=== PATIENT | female | born 1970 | race African-American/Black ===

== ENCOUNTER 2017-09-20 04:45 | Emergency (ER) | payer MEDICARE, OTHER ==
[~2017-09-20] VITALS: Ht 175.3 cm; Wt 104.5 kg
[~2017-09-20 04:45] MED LIST: BUSP10TA23 PO; DIVA125T32 PO; FLUO10TA3 PO; NOCURR
[2017-09-20] MEDS ORDERED: KETOROLAC TROMETHAMINE 60 MG/2 ML VIAL IM ONE (06:30)
[2017-09-20] MEDS ORDERED: ACETAMINOPHEN 500 MG TABLET PO ONE (06:30)
[2017-09-20 07:45] VITALS: BP 120/88
== END 2017-09-20 07:50 | disposition home or self-care (01) ==
LOC: EMS 04:46
DX: M54.5 Low back pain (principal); M62.838 Other muscle spasm; F31.9 Bipolar disorder, unspecified; F17.210 Nicotine dependence, cigarettes, uncomplicated
CPT/HCPCS: 96372; 99283; J1885

== ENCOUNTER 2017-09-28 14:11 | Inpatient (IN) | payer MEDICARE, MEDICAID ==
[~2017-09-28] VITALS: Ht 175.3 cm; Wt 93.9 kg
[2017-09-28] MEDS ORDERED: HALOPERIDOL 5 MG TABLET PO PRN (15:15)
[2017-09-28 15:30] VITALS: BP 99/68
[2017-09-28 17:04] VITALS: BP 101/65
[2017-09-28] MEDS ORDERED: ACETAMINOPHEN 325 MG TABLET PO PRN (17:15)
[2017-09-28] MEDS ORDERED: DOCUSATE SODIUM 100 MG CAPSULE PO PRN (17:15)
[2017-09-28] MEDS ORDERED: GuaiFENesin/D-METHORPHAN [SUGAR-FREE] 200-20MG/10 ML SYRUP UDCUP PO PRN (17:15)
[2017-09-28] MEDS ORDERED: MAG HYDROX/AL HYDROX/SIMETH ES 30 ML SUSPENSION UDCUP PO PRN (17:15)
[2017-09-28] MEDS ORDERED: ALBUTEROL SULFATE HFA 90 MCG/PUFF 8 GM INHALER IH PRN (17:15)
[2017-09-28] MEDS ORDERED: ONDANSETRON HCL 4 MG TABLET PO PRN (17:15)
[2017-09-28] MEDS ORDERED: PETROLATUM,WHITE 71 GM JELLY TP PRN (17:15)
[2017-09-28] MEDS ORDERED: LOPERAMIDE HCL 2 MG CAPSULE PO PRN (17:15)
[2017-09-28] MEDS ORDERED: MAGNESIUM HYDROXIDE SUSPENSION 30 ML UDCUP PO PRN (17:15)
[2017-09-28] MEDS ORDERED: CloNIDine HCL 0.1 MG TABLET PO PRN (17:15)
[2017-09-28] MEDS ORDERED: NICOTINE 14 MG/24 HOUR PATCH TD PRN (17:15)
[2017-09-28] MEDS ORDERED: CLOM25 PO (17:16)
[2017-09-28] MEDS ORDERED: ALPR0.5T8 PO ×2 (17:16→17:17)
[2017-09-28] MEDS ORDERED: BENZ0.5T44 PO (17:16)
[2017-09-28] MEDS ORDERED: CLOM50 PO (17:16)
[2017-09-28] MEDS ORDERED: LITH300CRT PO ×2 (17:16)
[2017-09-28] MEDS ORDERED: TRAZ-220 PO (17:16)
[2017-09-28] MEDS: NICOTINE 21 MG/24 HOUR PATCH TD SCH (17:31)
[2017-09-28] MEDS ORDERED: PNEUMOCOCCAL VACCINE POLYVALENT 0.5 ML VIAL [PPSV23] IM ONE (19:00)
[2017-09-29 01:28] VITALS: BP 121/69
[2017-09-29] MEDS: ZOLPIDEM TARTRATE 10 MG TABLET PO PRN ×2 (02:44→20:43)
[2017-09-29] MEDS: LORazepam 2 MG TABLET PO PRN ×3 (02:44→17:33)
[2017-09-29] MEDS: NICOTINE 21 MG/24 HOUR PATCH TD SCH (08:12)
[2017-09-29 08:28] LABS: BASOPHILS % (AUTO) 0.6 % (0.0-2.0); EOSINOPHILS % (AUTO) 2.6 % (1.0-6.0); HEMOGLOBIN 13.9 g/dL (12.0-16.0); LYMPHOCYTES # (AUTO) 2.9 K/uL (1.0-4.8); LYMPHOCYTES % (AUTO) 42.4 % (22.0-44.0); MEAN CORPUSCULAR HEMOGLOBIN 32.7 pg (26.0-34.0); MEAN CORPUSCULAR HGB CONC 33.8 G/dL (31.0-37.0); MEAN CORPUSCULAR VOLUME 97 fL (80-100); MONOCYTES # (AUTO) 0.5 K/uL (0.1-1.0); MONOCYTES % (AUTO) 7.9 % (2.0-9.0); NEUTROPHILS # (AUTO) 3.2 K/uL (1.8-7.7); NEUTROPHILS % (AUTO) 46.5 % (40.0-70.0); PLATELET COUNT (AUTO) 344 K/uL (150-450); RED BLOOD CELL COUNT(AUTO) 4.24 MIL/uL (4.00-5.20); RED CELL DISTRIBUTION WIDTH 13.9 % (11.5-14.5)
[2017-09-29 08:31] VITALS: BP 129/87
[2017-09-29 08:41] LABS: LITHIUM < 0.20 mmol/L (0.60-1.20)
[2017-09-29 08:46] LABS: HEMOGLOBIN A1C 5.3 % (4.5-6.2)
[2017-09-29 08:58] LABS: ALANINE AMINOTRANSFERASE 19 U/L (12-78); ALBUMIN 2.8 g/dL (3.4-5.0); ALKALINE PHOSPHATASE 67 U/L (46-116); ANION GAP 5 mmol/L (8-16); ASPARTATE AMINOTRANSFERASE 14 U/L (15-37); BILIRUBIN,TOTAL 0.1 mg/dL (0.1-1.0); CALCIUM, TOTAL 8.5 mg/dL (8.8-10.5); CARBON DIOXIDE 26 mmol/L (22-29); CHLORIDE 106 mmol/L (98-107); CHOL/HDL RATIO 2.9 (3.9-5.7); CHOLESTEROL 167 mg/dL (131-200); CREATININE 0.65 mg/dL (0.60-1.30); FREE T4 (FREE THYROXINE) 0.85 ng/dL (0.76-1.46); GLOMERULAR FILTR. RATE CALC > 60 mL/min (>60); GLUCOSE,RANDOM 84 mg/dL (70-110); HCG,QUANTITATIVE < 1 mIU/mL (0-6); HDL CHOLESTEROL 57 mg/dL (40-60); LDL CHOL (CALC.) 93 mg/dL (0-130); POTASSIUM 4.5 mmol/L (3.5-5.1); SODIUM SERUM 137 mmol/L (136-145); THYROID STIMULATING HORMONE 0.56 uIU/mL (0.36-3.74); TOTAL PROTEIN, SERUM 6.5 g/dL (6.4-8.2); TRIGLYCERIDES 86 mg/dL (15-150); UREA NITROGEN, BLOOD 15 mg/dL (7-18)
[2017-09-29] MEDS: LITHIUM CARBONATE 300 MG ER TABLET PO SCH ×2 (12:01→16:33)
[2017-09-29 16:10] VITALS: BP 112/78
[2017-09-29 17:17] VITALS: BP 119/82
[2017-09-29] MEDS: IBUPROFEN 400 MG TABLET PO PRN (17:19)
[2017-09-29] MEDS: OLANZapine 7.5 MG TABLET PO SCH (20:43)
[2017-09-29] MEDS: BENZTROPINE MESYLATE 0.5 MG TABLET PO SCH (20:43)
[2017-09-30 01:19] VITALS: BP 110/74
[2017-09-30 07:20] VITALS: BP 129/82
[2017-09-30] MEDS: LORazepam 2 MG TABLET PO PRN ×3 (07:21→16:27)
[2017-09-30] MEDS: IBUPROFEN 400 MG TABLET PO PRN (07:22)
[2017-09-30] MEDS: NICOTINE 21 MG/24 HOUR PATCH TD SCH (08:11)
[2017-09-30] MEDS: LITHIUM CARBONATE 300 MG ER TABLET PO SCH ×2 (08:11→17:11)
[2017-09-30 08:24] VITALS: BP 104/61
[2017-09-30] MEDS ORDERED: AmLODIPine BESYLATE 5 MG TABLET PO SCH (10:30)
[2017-09-30 16:10] VITALS: BP 112/60
[2017-09-30] MEDS ORDERED: BENZOCAINE 10% 7 GM GEL TP PRN (18:45)
[2017-09-30 20:19] VITALS: BP 116/64
[2017-09-30] MEDS: IBUPROFEN 600 MG TABLET PO PRN (20:19)
[2017-09-30] MEDS: BENZTROPINE MESYLATE 0.5 MG TABLET PO SCH (20:35)
[2017-09-30] MEDS: OLANZapine 7.5 MG TABLET PO SCH (20:35)
[2017-10-01 02:30] VITALS: BP 114/68
[2017-10-01] MEDS: NICOTINE 21 MG/24 HOUR PATCH TD SCH (08:07)
[2017-10-01] MEDS: LITHIUM CARBONATE 300 MG ER TABLET PO SCH ×2 (08:07→17:04)
[2017-10-01 08:23] VITALS: BP 108/69
[2017-10-01] MEDS: LORazepam 2 MG TABLET PO PRN ×2 (08:36→12:55)
[2017-10-01 10:20] VITALS: BP 112/72
[2017-10-01] MEDS: IBUPROFEN 600 MG TABLET PO PRN (10:20)
[2017-10-01] MEDS ORDERED: TraMADol HCL 50 MG TABLET PO PRN (13:15)
[2017-10-01 16:02] VITALS: BP 104/68
[2017-10-01] MEDS ORDERED: OLANZapine 7.5 MG TABLET PO SCH (17:00)
[2017-10-01] MEDS: BENZTROPINE MESYLATE 0.5 MG TABLET PO SCH (20:01)
[2017-10-01] MEDS: ZOLPIDEM TARTRATE 10 MG TABLET PO PRN (20:35)
[2017-10-01] MEDS ORDERED: OLAN7.5T2 PO (22:08)
[2017-10-02 06:46] VITALS: BP 100/63
[2017-10-02 06:58] VITALS: BP 107/68
[2017-10-02] MEDS: LORazepam 2 MG TABLET PO PRN (06:58)
[2017-10-02 08:11] VITALS: BP 131/66
[2017-10-02] MEDS: NICOTINE 21 MG/24 HOUR PATCH TD SCH (08:39)
[2017-10-02] MEDS: LITHIUM CARBONATE 300 MG ER TABLET PO SCH (08:39)
== END 2017-10-02 11:15 | disposition home or self-care (01) | DRG 885 ==
LOC: B2X 15:25
DX: F25.0 Schizoaffective disorder, bipolar type (principal); R45.851 Suicidal ideations; F10.10 Alcohol abuse, uncomplicated; F12.90 Cannabis use, unspecified, uncomplicated; G89.29 Other chronic pain; M54.9 Dorsalgia, unspecified; K08.89 Other specified disorders of teeth and supporting structures; E83.51 Hypocalcemia; F17.200 Nicotine dependence, unspecified, uncomplicated; Z71.6 Tobacco abuse counseling; Z91.5 Personal history of self-harm; Z28.21 Immunization not carried out because of patient refusal
CPT/HCPCS: 83036; 84439; 84443

== ENCOUNTER 2018-04-02 01:35 | Emergency (ER) | payer MEDICARE, OTHER ==
[~2018-04-02] VITALS: Ht 170.2 cm; Wt 104.5 kg
[~2018-04-02 01:35] MED LIST changes: +BENZ0.5T44 PO; -BUSP10TA23 PO; -DIVA125T32 PO; -FLUO10TA3 PO; +LITH300CRT PO; -NOCURR; +OLAN7.5T2 PO
[2018-04-02 02:40] LABS: APPEARANCE,URINE CLEAR (CLEAR); BILIRUBIN,URINE NEGATIVE (NEGATIVE); GLUCOSE, URINE (UA) NEGATIVE (NEGATIVE); KETONES,URINE TRACE mg/dL (NEGATIVE); LEUKOCYTE ESTERASE ,URINE NEGATIVE (NEGATIVE); NITRATE,URINE NEGATIVE (NEGATIVE); OCCULT BLOOD,URINE NEGATIVE (NEGATIVE); PROTEIN,URINE NEGATIVE (NEGATIVE); UROBILINOGEN,URINE 0.2 mg/dL (<=1.0)
[2018-04-02 04:30] LABS: BASOPHILS % (AUTO) 0.9 % (0.0-2.0); EOSINOPHILS % (AUTO) 1.3 % (1.0-6.0); HEMATOCRIT 40.7 % (36-46); LYMPHOCYTES # (AUTO) 2.4 K/uL (1.0-4.8); LYMPHOCYTES % (AUTO) 36.1 % (22.0-44.0); MEAN CORPUSCULAR HEMOGLOBIN 32.3 pg (26.0-34.0); MEAN CORPUSCULAR HGB CONC 34.5 G/dL (31.0-37.0); MEAN CORPUSCULAR VOLUME 94 fL (80-100); MONOCYTES # (AUTO) 0.6 K/uL (0.1-1.0); MONOCYTES % (AUTO) 8.6 % (2.0-9.0); NEUTROPHILS # (AUTO) 3.6 K/uL (1.8-7.7); NEUTROPHILS % (AUTO) 53.1 % (40.0-70.0); PLATELET COUNT (AUTO) 342 K/uL (150-450); RED BLOOD CELL COUNT(AUTO) 4.34 MIL/uL (4.00-5.20); RED CELL DISTRIBUTION WIDTH 13.2 % (11.5-14.5)
[2018-04-02 04:40] LABS: ANION GAP 7 mmol/L (8-16); CALCIUM, TOTAL 8.6 mg/dL (8.8-10.5); CARBON DIOXIDE 27 mmol/L (22-29); CHLORIDE 103 mmol/L (98-107); CREATININE 0.69 mg/dL (0.60-1.30); GLOMERULAR FILTR. RATE CALC > 60 mL/min (>60); GLUCOSE,RANDOM 92 mg/dL (70-110); POTASSIUM 3.6 mmol/L (3.5-5.1); SODIUM SERUM 137 mmol/L (136-145); UREA NITROGEN, BLOOD 8 mg/dL (7-18)
[2018-04-02 04:45] LABS: ALANINE AMINOTRANSFERASE 23 U/L (12-78); ALBUMIN 3.4 g/dL (3.4-5.0); ALKALINE PHOSPHATASE 64 U/L (46-116); ASPARTATE AMINOTRANSFERASE 22 U/L (15-37); BILIRUBIN,TOTAL 0.5 mg/dL (0.1-1.0); LIPASE 175 U/L (73-393); TOTAL PROTEIN, SERUM 7.3 g/dL (6.4-8.2)
[2018-04-02 06:00] VITALS: BP 129/75
== END 2018-04-02 06:48 | disposition home or self-care (01) ==
LOC: EMS 01:36
DX: R10.11 Right upper quadrant pain (principal); R39.11 Hesitancy of micturition; F31.9 Bipolar disorder, unspecified; F17.210 Nicotine dependence, cigarettes, uncomplicated

== ENCOUNTER 2019-04-16 22:29 | Emergency (ER) | payer MEDICARE, OTHER ==
[~2019-04-16] VITALS: Ht 167.6 cm; Wt 118.2 kg
[2019-04-16] MEDS ORDERED: PROZ10 PO (23:25)
[2019-04-16] MEDS ORDERED: ALPR0.5T8 PO (23:25)
[2019-04-16] MEDS ORDERED: LITH300C3 PO (23:26)
[2019-04-17 02:00] VITALS: BP 121/78
[2019-04-17] MEDS ORDERED: TiZANidine HCL 4 MG TABLET PO ONE (02:15)
[2019-04-17] MEDS ORDERED: KETOROLAC TROMETHAMINE 30 MG/ML VIAL IM ONE (02:15)
== END 2019-04-17 02:46 | disposition home or self-care (01) ==
LOC: EMS 22:32
DX: S39.012A Strain of muscle, fascia and tendon of lower back, initial encounter (principal); F17.210 Nicotine dependence, cigarettes, uncomplicated; Z79.899 Other long term (current) drug therapy; F32.9 Major depressive disorder, single episode, unspecified; X58.XXXA Exposure to other specified factors, initial encounter; Y93.89 Activity, other specified; Y92.89 Other specified places as the place of occurrence of the external cause; Y99.8 Other external cause status
CPT/HCPCS: 96372; 99283; J1885

== ENCOUNTER 2020-06-24 06:42 | Emergency (ER) | payer OTHER, MEDICARE ==
[~2020-06-24] VITALS: Ht 172.7 cm; Wt 90.9 kg
[~2020-06-24 06:42] MED LIST changes: +ALPR0.5T8 PO; -BENZ0.5T44 PO; +FLUO10CA24 PO; +LITH300C3 PO; -LITH300CRT PO; -OLAN7.5T2 PO
[2020-06-24 07:54] LABS: BASOPHILS % (AUTO) 0.5 % (0.0-2.0); EOSINOPHILS % (AUTO) 0.9 % (1.0-6.0); HEMATOCRIT 40.6 % (36-46); LYMPHOCYTES # (AUTO) 1.9 K/uL (1.0-4.8); LYMPHOCYTES % (AUTO) 20.7 % (22.0-44.0); MEAN CORPUSCULAR HEMOGLOBIN 32.3 pg (26.0-34.0); MEAN CORPUSCULAR HGB CONC 34.5 G/dL (31.0-37.0); MEAN CORPUSCULAR VOLUME 94 fL (80-100); MONOCYTES # (AUTO) 0.4 K/uL (0.1-1.0); MONOCYTES % (AUTO) 4.4 % (2.0-9.0); NEUTROPHILS # (AUTO) 6.8 K/uL (1.8-7.7); NEUTROPHILS % (AUTO) 73.5 % (40.0-70.0); PLATELET COUNT (AUTO) 377 K/uL (150-450); RED BLOOD CELL COUNT(AUTO) 4.35 MIL/uL (4.00-5.20); RED CELL DISTRIBUTION WIDTH 13.8 % (11.5-14.5)
[2020-06-24 08:07] LABS: ANION GAP 11 mmol/L (8-16); CALCIUM, TOTAL 8.6 mg/dL (8.8-10.5); CARBON DIOXIDE 25 mmol/L (22-29); CHLORIDE 102 mmol/L (98-107); CREATININE 0.54 mg/dL (0.60-1.30); GLOMERULAR FILTR. RATE CALC > 60 mL/min (>60); GLUCOSE,RANDOM 99 mg/dL (70-110); POTASSIUM 3.3 mmol/L (3.5-5.1); SODIUM SERUM 138 mmol/L (136-145); UREA NITROGEN, BLOOD 4 mg/dL (7-18)
[2020-06-24 08:12] VITALS: BP 110/67
[2020-06-24 08:21] LABS: ALANINE AMINOTRANSFERASE 22 U/L (12-78); ALBUMIN 3.5 g/dL (3.4-5.0); ALKALINE PHOSPHATASE 65 U/L (46-116); ASPARTATE AMINOTRANSFERASE 17 U/L (15-37); BILIRUBIN,TOTAL 0.6 mg/dL (0.1-1.0); HCG,QUANTITATIVE < 1 mIU/mL (0-6); TOTAL PROTEIN, SERUM 7.1 g/dL (6.4-8.2)
[2020-06-24] MEDS ORDERED: POTASSIUM CHLORIDE 20 MEQ ER TABLET PO ONE (08:30)
== END 2020-06-24 08:48 | disposition home or self-care (01) ==
LOC: EMS 06:43
DX: R55 Syncope and collapse (principal); M54.5 Low back pain; F31.9 Bipolar disorder, unspecified; F17.210 Nicotine dependence, cigarettes, uncomplicated; Z79.899 Other long term (current) drug therapy
CPT/HCPCS: 80053; 84484; 84702; 85025; 93005; 99284

== ENCOUNTER 2021-02-18 08:00 | Emergency (ER) | payer MEDICARE, OTHER ==
[~2021-02-18] VITALS: Ht 172.7 cm; Wt 77.3 kg
[2021-02-18 08:47] LABS: BASOPHILS % (AUTO) 0.7 % (0.0-2.0); EOSINOPHILS % (AUTO) 1.8 % (1.0-6.0); HEMATOCRIT 40.1 % (36-46); HEMOGLOBIN 13.9 g/dL (12.0-16.0); LYMPHOCYTES # (AUTO) 2.2 K/uL (1.0-4.8); MEAN CORPUSCULAR HEMOGLOBIN 33.7 pg (26.0-34.0); MEAN CORPUSCULAR HGB CONC 34.7 G/dL (31.0-37.0); MEAN CORPUSCULAR VOLUME 97 fL (80-100); MONOCYTES # (AUTO) 0.6 K/uL (0.1-1.0); NEUTROPHILS # (AUTO) 4.5 K/uL (1.8-7.7); NEUTROPHILS % (AUTO) 59.5 % (40.0-70.0); PLATELET COUNT (AUTO) 354 K/uL (150-450); RED BLOOD CELL COUNT(AUTO) 4.13 MIL/uL (4.00-5.20); RED CELL DISTRIBUTION WIDTH 13.8 % (11.5-14.5)
[2021-02-18 08:55] LABS: ANION GAP 6 mmol/L (8-16); CALCIUM, TOTAL 8.5 mg/dL (8.8-10.5); CARBON DIOXIDE 28 mmol/L (22-29); CHLORIDE 102 mmol/L (98-107); CREATININE 0.76 mg/dL (0.60-1.30); GLOMERULAR FILTR. RATE CALC > 60 mL/min (>60); GLUCOSE,RANDOM 98 mg/dL (70-110); SODIUM SERUM 136 mmol/L (136-145); UREA NITROGEN, BLOOD 8 mg/dL (7-18)
[2021-02-18] MEDS ORDERED: ONDANSETRON HCL 4 MG/2 ML VIAL IVP ONE (09:00)
[2021-02-18] MEDS ORDERED: SODIUM CHLORIDE 0.9% 1,000 ML IV ONE (09:00)
[2021-02-18 09:20] LABS: ALANINE AMINOTRANSFERASE 18 U/L (12-78); ALBUMIN 3.5 g/dL (3.4-5.0); ALKALINE PHOSPHATASE 73 U/L (46-116); ASPARTATE AMINOTRANSFERASE 18 U/L (15-37); BILIRUBIN,TOTAL 0.3 mg/dL (0.1-1.0); CREATINE KINASE, TOTAL ONLY 125 U/L (26-192); HCG,QUANTITATIVE 1 mIU/mL (0-6); LIPASE 109 U/L (73-393); TOTAL PROTEIN, SERUM 7.3 g/dL (6.4-8.2)
[2021-02-18] MEDS ORDERED: IOHEXOL 350 MG/ML 100 ML VIAL ONE (09:50)
[2021-02-18] MEDS ORDERED: SODIUM CHLORIDE 0.9% 100 ML ONE (09:50)
[2021-02-18 09:53] LABS: COVID AG,FIA SOURCE NASOPHARYNGEAL
[2021-02-18 10:10] LABS: APPEARANCE,URINE CLEAR (CLEAR); BILIRUBIN,URINE NEGATIVE (NEGATIVE); GLUCOSE, URINE (UA) NEGATIVE (NEGATIVE); KETONES,URINE NEGATIVE (NEGATIVE); LEUKOCYTE ESTERASE ,URINE NEGATIVE (NEGATIVE); NITRATE,URINE NEGATIVE (NEGATIVE); OCCULT BLOOD,URINE NEGATIVE (NEGATIVE); PH,URINE 5.5 (5.0-8.0); PROTEIN,URINE NEGATIVE (NEGATIVE); UROBILINOGEN,URINE 0.2 mg/dL (<=1.0)
[2021-02-18 10:26] LABS: BACTERIA,URINE None Seen /HPF (None Seen); RBC,URINE None Seen /HPF (0-2); SQUAMOUS EPITHELIAL CELL,UR Few /LPF (None Seen); WBC,URINE None Seen /HPF (0-5)
[2021-02-18 12:21] VITALS: BP 123/74
[2021-02-18] MEDS ORDERED: ONDA-104 PO (13:18)
== END 2021-02-18 13:35 | disposition home or self-care (01) ==
LOC: EMS 08:08
DX: N88.8 Other specified noninflammatory disorders of cervix uteri (principal); R11.2 Nausea with vomiting, unspecified; R19.7 Diarrhea, unspecified; R42 Dizziness and giddiness; F31.9 Bipolar disorder, unspecified; F17.210 Nicotine dependence, cigarettes, uncomplicated; F12.90 Cannabis use, unspecified, uncomplicated; Z20.822 Contact with and (suspected) exposure to COVID-19
CPT/HCPCS: 36415; 71045; 74177; 80053; 81001; 82550; 83690; 83735; 84702; 85025; 87426; 93005; 96361; 96374; 99285; J2405; J7030; J7050; Q9967; U0003

== ENCOUNTER 2021-03-04 13:32 | Emergency (ER) | payer MEDICARE, OTHER ==
[~2021-03-04] VITALS: Ht 172.7 cm; Wt 122.7 kg
[~2021-03-04 13:32] MED LIST changes: +ONDA-104 PO
[2021-03-04 14:51] LABS: BASOPHILS % (AUTO) 0.7 % (0.0-2.0); EOSINOPHILS % (AUTO) 1.2 % (1.0-6.0); HEMATOCRIT 38.8 % (36-46); HEMOGLOBIN 13.5 g/dL (12.0-16.0); LYMPHOCYTES # (AUTO) 1.8 K/uL (1.0-4.8); LYMPHOCYTES % (AUTO) 23.6 % (22.0-44.0); MEAN CORPUSCULAR HGB CONC 34.9 G/dL (31.0-37.0); MEAN CORPUSCULAR VOLUME 97 fL (80-100); MONOCYTES # (AUTO) 0.6 K/uL (0.1-1.0); MONOCYTES % (AUTO) 7.5 % (2.0-9.0); PLATELET COUNT (AUTO) 330 K/uL (150-450); RED BLOOD CELL COUNT(AUTO) 3.98 MIL/uL (4.00-5.20); RED CELL DISTRIBUTION WIDTH 13.8 % (11.5-14.5)
[2021-03-04 15:05] LABS: ANION GAP 7 mmol/L (8-16); CALCIUM, TOTAL 8.3 mg/dL (8.8-10.5); CARBON DIOXIDE 25 mmol/L (22-29); CHLORIDE 104 mmol/L (98-107); CREATININE 0.73 mg/dL (0.60-1.30); GLOMERULAR FILTR. RATE CALC > 60 mL/min (>60); GLUCOSE,RANDOM 95 mg/dL (70-110); POTASSIUM 4.1 mmol/L (3.5-5.1); SODIUM SERUM 136 mmol/L (136-145); UREA NITROGEN, BLOOD 9 mg/dL (7-18)
[2021-03-04 15:18] LABS: COVID AG,FIA SOURCE NASOPHARYNGEAL
[2021-03-04 15:20] LABS: ALANINE AMINOTRANSFERASE 24 U/L (12-78); ALBUMIN 3.4 g/dL (3.4-5.0); ALKALINE PHOSPHATASE 71 U/L (46-116); ASPARTATE AMINOTRANSFERASE 32 U/L (15-37); BILIRUBIN,TOTAL 0.4 mg/dL (0.1-1.0); FREE T4 (FREE THYROXINE) 0.95 ng/dL (0.76-1.46); THYROID STIMULATING HORMONE 1.25 uIU/mL (0.36-3.74); TOTAL PROTEIN, SERUM 7.5 g/dL (6.4-8.2)
[2021-03-04 16:03] LABS: LITHIUM < 0.20 mmol/L (0.60-1.20)
[2021-03-04] MEDS ORDERED: KETOROLAC TROMETHAMINE 60 MG/2 ML VIAL IM ONE (16:30)
[2021-03-04 16:33] LABS: AMPHET/METH SCREEN,URINE NEGATIVE (NEGATIVE); BARBITURATE SCREEN, URINE NEGATIVE (NEGATIVE); BENZODIAZEPINES SCREEN,URINE NEGATIVE (NEGATIVE); CANNABINOID SCREEN,URINE POSITIVE (NEGATIVE); COCAINE SCREEN,URINE NEGATIVE (NEGATIVE); METHADONE SCREEN, URINE NEGATIVE (NEGATIVE); OPIATE SCREEN,URINE NEGATIVE (NEGATIVE)
[2021-03-04 16:42] LABS: APPEARANCE,URINE CLOUDY (CLEAR); BILIRUBIN,URINE NEGATIVE (NEGATIVE); GLUCOSE, URINE (UA) NEGATIVE (NEGATIVE); KETONES,URINE NEGATIVE (NEGATIVE); LEUKOCYTE ESTERASE ,URINE NEGATIVE (NEGATIVE); NITRATE,URINE NEGATIVE (NEGATIVE); OCCULT BLOOD,URINE NEGATIVE (NEGATIVE); PROTEIN,URINE NEGATIVE (NEGATIVE); UROBILINOGEN,URINE 0.2 mg/dL (<=1.0)
[2021-03-04 16:47] LABS: PHENCYCLIDINE SCREEN,URINE NEGATIVE (NEGATIVE)
[2021-03-04 17:38] VITALS: BP 119/67
== END 2021-03-04 17:56 | disposition home or self-care (01) ==
LOC: EMS 13:40
DX: S90.121A Contusion of right lesser toe(s) without damage to nail, initial encounter (principal); G89.29 Other chronic pain; M54.50 Low back pain, unspecified; F17.210 Nicotine dependence, cigarettes, uncomplicated; F31.9 Bipolar disorder, unspecified; F12.90 Cannabis use, unspecified, uncomplicated; Z20.822 Contact with and (suspected) exposure to COVID-19; W01.0XXA Fall on same level from slipping, tripping and stumbling without subsequent striking against object, initial encounter; Y93.89 Activity, other specified; Y92.89 Other specified places as the place of occurrence of the external cause; Y99.8 Other external cause status
CPT/HCPCS: 36415; 71045; 73630; 80053; 80178; 80307; 81003; 84439; 84443; 84484; 85025; 87426; 93005; 96372; 99285; G0480; J1885

== ENCOUNTER 2021-04-08 06:50 | Emergency (ER) | payer OTHER, MEDICARE ==
[~2021-04-08] VITALS: Ht 172.7 cm; Wt 100.0 kg
[2021-04-08] MEDS ORDERED: PARO10TA89 PO (08:40)
[2021-04-08] MEDS ORDERED: MECLIZINE HCL 25 MG TABLET PO ONE (09:00)
[2021-04-08 10:25] VITALS: BP 135/77
[2021-04-08] MEDS ORDERED: MECL-160 PO (11:10)
== END 2021-04-08 11:20 | disposition home or self-care (01) ==
LOC: EMS 06:51
DX: H81.10 Benign paroxysmal vertigo, unspecified ear (principal); F31.9 Bipolar disorder, unspecified; F41.9 Anxiety disorder, unspecified; F12.90 Cannabis use, unspecified, uncomplicated; F17.210 Nicotine dependence, cigarettes, uncomplicated; Z79.899 Other long term (current) drug therapy
CPT/HCPCS: 70450; 99285

== ENCOUNTER 2022-03-24 13:49 | Inpatient (IN) | payer MEDICARE, MEDICAID ==
[~2022-03-24] VITALS: Ht 170.2 cm; Wt 106.6 kg
[~2022-03-24 13:49] MED LIST changes: +ALPR-707 PO; -ALPR0.5T8 PO; +MECL-160 PO; +PARO10TA89 PO
[2022-03-24] MEDS ORDERED: OLAN2.5T29 PO (14:02)
[2022-03-24 15:13] LABS: BASOPHILS % (AUTO) 0.9 % (0.0-2.0); EOSINOPHILS % (AUTO) 1.8 % (1.0-6.0); HEMATOCRIT 47.7 % (36-46); HEMOGLOBIN 15.8 g/dL (12.0-16.0); LYMPHOCYTES # (AUTO) 2.6 K/uL (1.0-4.8); LYMPHOCYTES % (AUTO) 42.1 % (22.0-44.0); MEAN CORPUSCULAR HEMOGLOBIN 32.2 pg (26.0-34.0); MEAN CORPUSCULAR HGB CONC 33.2 G/dL (31.0-37.0); MEAN CORPUSCULAR VOLUME 97 fL (80-100); MONOCYTES # (AUTO) 0.4 K/uL (0.1-1.0); MONOCYTES % (AUTO) 6.3 % (2.0-9.0); NEUTROPHILS % (AUTO) 48.9 % (40.0-70.0); PLATELET COUNT (AUTO) 330 K/uL (150-450); RED BLOOD CELL COUNT(AUTO) 4.92 MIL/uL (4.00-5.20); RED CELL DISTRIBUTION WIDTH 14.1 % (11.5-14.5)
[2022-03-24 15:53] LABS: ANION GAP 15 mmol/L (8-16); CARBON DIOXIDE 23 mmol/L (22-29); CHLORIDE 103 mmol/L (98-107); CREATININE 0.77 mg/dL (0.60-1.30); GLOMERULAR FILTR. RATE CALC > 60 mL/min (>60); GLUCOSE,RANDOM 79 mg/dL (70-110); POTASSIUM 4.1 mmol/L (3.5-5.1); SODIUM SERUM 141 mmol/L (136-145); UREA NITROGEN, BLOOD 7 mg/dL (7-18)
[2022-03-24 16:01] LABS: ALANINE AMINOTRANSFERASE 20 U/L (12-78); ALBUMIN 3.9 g/dL (3.4-5.0); ALKALINE PHOSPHATASE 88 U/L (46-116); ASPARTATE AMINOTRANSFERASE 17 U/L (15-37); BILIRUBIN,TOTAL 0.4 mg/dL (0.1-1.0); HCG,QUANTITATIVE 3 mIU/mL (0-6); TOTAL PROTEIN, SERUM 8.5 g/dL (6.4-8.2)
[2022-03-24 16:08] LABS: COVID AG,FIA SOURCE NASOPHARYNGEAL
[2022-03-24] MEDS ORDERED: LORazepam 2 MG TABLET PO ONE (16:15)
[2022-03-24] MEDS ORDERED: NICOTINE 14 MG/24 HOUR PATCH TD ONE (16:15)
[2022-03-24 20:00] VITALS: BP 120/84
[2022-03-24] MEDS: ZOLPIDEM TARTRATE 10 MG TABLET PO PRN (20:18)
[2022-03-24] MEDS ORDERED: LOPERAMIDE HCL 2 MG CAPSULE PO PRN (21:00)
[2022-03-24] MEDS ORDERED: ONDANSETRON HCL 4 MG TABLET PO PRN (21:00)
[2022-03-24] MEDS ORDERED: GuaiFENesin/D-METHORPHAN [SUGAR-FREE] 200-20MG/10 ML SYRUP UDCUP PO PRN (21:00)
[2022-03-24] MEDS ORDERED: ALBUTEROL SULFATE HFA 90 MCG/PUFF 8 GM INHALER IH PRN (21:00)
[2022-03-24] MEDS ORDERED: CloNIDine HCL 0.1 MG TABLET PO PRN (21:00)
[2022-03-24] MEDS ORDERED: PETROLATUM,WHITE 28 GM JELLY TP PRN (21:00)
[2022-03-24] MEDS ORDERED: IBUPROFEN 400 MG TABLET PO PRN (21:00)
[2022-03-25 07:22] LABS: BASOPHILS % (AUTO) 0.8 % (0.0-2.0); EOSINOPHILS % (AUTO) 3.3 % (1.0-6.0); HEMATOCRIT 46.2 % (36-46); HEMOGLOBIN 15.6 g/dL (12.0-16.0); LYMPHOCYTES # (AUTO) 2.6 K/uL (1.0-4.8); LYMPHOCYTES % (AUTO) 45.2 % (22.0-44.0); MEAN CORPUSCULAR HEMOGLOBIN 32.4 pg (26.0-34.0); MEAN CORPUSCULAR HGB CONC 33.9 G/dL (31.0-37.0); MEAN CORPUSCULAR VOLUME 96 fL (80-100); MONOCYTES # (AUTO) 0.5 K/uL (0.1-1.0); MONOCYTES % (AUTO) 8.9 % (2.0-9.0); NEUTROPHILS # (AUTO) 2.4 K/uL (1.8-7.7); NEUTROPHILS % (AUTO) 41.8 % (40.0-70.0); PLATELET COUNT (AUTO) 299 K/uL (150-450); RED BLOOD CELL COUNT(AUTO) 4.82 MIL/uL (4.00-5.20)
[2022-03-25 07:34] LABS: HEMOGLOBIN A1C 5.6 % (3.8-5.6)
[2022-03-25 07:52] LABS: ALANINE AMINOTRANSFERASE 20 U/L (12-78); ALBUMIN 3.6 g/dL (3.4-5.0); ALKALINE PHOSPHATASE 89 U/L (46-116); ANION GAP 9 mmol/L (8-16); ASPARTATE AMINOTRANSFERASE 17 U/L (15-37); BILIRUBIN,TOTAL 0.8 mg/dL (0.1-1.0); CARBON DIOXIDE 25 mmol/L (22-29); CHLORIDE 104 mmol/L (98-107); CHOL/HDL RATIO 3.7 (3.9-5.7); CHOLESTEROL 271 mg/dL (131-200); CREATININE 0.79 mg/dL (0.60-1.30); GLOMERULAR FILTR. RATE CALC > 60 mL/min (>60); GLUCOSE,RANDOM 92 mg/dL (70-110); HDL CHOLESTEROL 74 mg/dL (40-60); LDL CHOL (CALC.) 176 mg/dL (0-130); POTASSIUM 4.2 mmol/L (3.5-5.1); SODIUM SERUM 138 mmol/L (136-145); THYROID STIMULATING HORMONE 0.71 uIU/mL (0.36-3.74); TRIGLYCERIDES 106 mg/dL (15-150); UREA NITROGEN, BLOOD 9 mg/dL (7-18)
[2022-03-25 08:16] VITALS: BP 100/60
[2022-03-25] MEDS: NICOTINE 14 MG/24 HOUR PATCH TD SCH (08:36)
[2022-03-25] MEDS: LORazepam 2 MG TABLET PO PRN ×2 (08:48→16:51)
[2022-03-25] MEDS: OLANZapine 5 MG TABLET PO SCH (13:23)
[2022-03-25] MEDS: LITHIUM CARBONATE 300 MG CAPSULE PO SCH ×2 (13:23→16:51)
[2022-03-25] MEDS: FLUoxetine HCL 10 MG CAPSULE PO SCH (15:52)
[2022-03-25 20:07] VITALS: BP 110/70
[2022-03-25] MEDS: OLANZapine 10 MG TABLET PO SCH (20:22)
[2022-03-26 08:28] VITALS: BP 110/66
[2022-03-26] MEDS: OLANZapine 5 MG TABLET PO SCH (09:12)
[2022-03-26] MEDS: LITHIUM CARBONATE 300 MG CAPSULE PO SCH ×3 (09:12→16:33)
[2022-03-26] MEDS: FLUoxetine HCL 10 MG CAPSULE PO SCH (09:12)
[2022-03-26] MEDS: NICOTINE 14 MG/24 HOUR PATCH TD SCH (09:12)
[2022-03-26] MEDS: HALOPERIDOL 5 MG TABLET PO PRN ×2 (10:28→16:39)
[2022-03-26] MEDS: LORazepam 2 MG TABLET PO PRN (16:32)
[2022-03-26] MEDS: OLANZapine 10 MG TABLET PO SCH (20:32)
[2022-03-26] MEDS: ZOLPIDEM TARTRATE 10 MG TABLET PO PRN (20:37)
[2022-03-26 21:19] VITALS: BP 110/66
[2022-03-27 08:43] VITALS: BP 106/67
[2022-03-27] MEDS: LITHIUM CARBONATE 300 MG CAPSULE PO SCH ×3 (09:08→16:52)
[2022-03-27] MEDS: FLUoxetine HCL 10 MG CAPSULE PO SCH (09:08)
[2022-03-27] MEDS: OLANZapine 5 MG TABLET PO SCH (09:08)
[2022-03-27] MEDS: NICOTINE 14 MG/24 HOUR PATCH TD SCH (09:08)
[2022-03-27] MEDS: HALOPERIDOL 5 MG TABLET PO PRN ×2 (10:11→16:52)
[2022-03-27] MEDS: LORazepam 2 MG TABLET PO PRN ×2 (12:11→18:52)
[2022-03-27] MEDS: OLANZapine 10 MG TABLET PO SCH (20:32)
[2022-03-27 23:39] VITALS: BP 109/79
[2022-03-28 08:00] VITALS: BP 100/68
[2022-03-28] MEDS: LITHIUM CARBONATE 300 MG CAPSULE PO SCH ×3 (08:31→16:31)
[2022-03-28] MEDS: FLUoxetine HCL 10 MG CAPSULE PO SCH (08:31)
[2022-03-28] MEDS: OLANZapine 5 MG TABLET PO SCH (08:31)
[2022-03-28] MEDS: NICOTINE 14 MG/24 HOUR PATCH TD SCH (08:32)
[2022-03-28 08:44] VITALS: BP 100/68
[2022-03-28 09:53] VITALS: BP 102/70
[2022-03-28] MEDS: LORazepam 2 MG TABLET PO PRN ×3 (09:58→19:51)
[2022-03-28 20:21] VITALS: BP 107/61
[2022-03-28] MEDS: OLANZapine 10 MG TABLET PO SCH (20:35)
[2022-03-29] MEDS: NICOTINE 14 MG/24 HOUR PATCH TD SCH (09:54)
[2022-03-29] MEDS: FLUoxetine HCL 10 MG CAPSULE PO SCH (09:54)
[2022-03-29] MEDS: OLANZapine 5 MG TABLET PO SCH (09:54)
[2022-03-29] MEDS: LITHIUM CARBONATE 300 MG CAPSULE PO SCH ×3 (09:54→16:24)
[2022-03-29 10:06] VITALS: BP 110/60
[2022-03-29] MEDS: LORazepam 2 MG TABLET PO PRN ×2 (12:27→19:44)
[2022-03-29] MEDS: HALOPERIDOL 5 MG TABLET PO PRN (15:59)
[2022-03-29] MEDS: OLANZapine 10 MG TABLET PO SCH (19:44)
[2022-03-29 22:42] VITALS: BP 110/70
[2022-03-30 07:46] LABS: GLUCOMETER DEV NAME(LOC) POC.BV
[2022-03-30] MEDS: DOCUSATE SODIUM 100 MG CAPSULE PO PRN (08:34)
[2022-03-30] MEDS: NICOTINE 14 MG/24 HOUR PATCH TD SCH (08:34)
[2022-03-30] MEDS: OLANZapine 5 MG TABLET PO SCH ×2 (08:34→16:39)
[2022-03-30] MEDS: LITHIUM CARBONATE 300 MG CAPSULE PO SCH ×3 (08:34→16:39)
[2022-03-30] MEDS: FLUoxetine HCL 10 MG CAPSULE PO SCH (08:35)
[2022-03-30 08:41] VITALS: BP 113/66
[2022-03-30] MEDS: LORazepam 2 MG TABLET PO PRN (12:04)
[2022-03-30] MEDS: OLANZapine 10 MG TABLET PO SCH (20:37)
[2022-03-30] MEDS: TraZODone HCL 50 MG TABLET PO SCH (20:37)
[2022-03-30 22:42] VITALS: BP 124/78
[2022-03-31] MEDS: FLUoxetine HCL 10 MG CAPSULE PO SCH (08:27)
[2022-03-31] MEDS: OLANZapine 5 MG TABLET PO SCH ×2 (08:27→16:16)
[2022-03-31] MEDS: LITHIUM CARBONATE 300 MG CAPSULE PO SCH ×3 (08:27→16:16)
[2022-03-31] MEDS: NICOTINE 14 MG/24 HOUR PATCH TD SCH (08:28)
[2022-03-31 09:01] VITALS: BP 119/69
[2022-03-31] MEDS: LORazepam 2 MG TABLET PO PRN (09:23)
[2022-03-31] MEDS: HALOPERIDOL 5 MG TABLET PO PRN ×2 (15:09→20:16)
[2022-03-31] MEDS: TraZODone HCL 50 MG TABLET PO SCH (20:16)
[2022-03-31] MEDS: OLANZapine 10 MG TABLET PO SCH (20:16)
[2022-03-31 20:32] VITALS: BP 108/72
[2022-04-01 08:40] VITALS: BP 110/79
[2022-04-01] MEDS: OLANZapine 5 MG TABLET PO SCH ×2 (09:02→16:57)
[2022-04-01] MEDS: NICOTINE 14 MG/24 HOUR PATCH TD SCH (09:02)
[2022-04-01] MEDS: LITHIUM CARBONATE 300 MG CAPSULE PO SCH ×3 (09:02→16:57)
[2022-04-01] MEDS: FLUoxetine HCL 10 MG CAPSULE PO SCH (09:02)
[2022-04-01] MEDS: LORazepam 2 MG TABLET PO PRN ×2 (09:34→17:27)
[2022-04-01] MEDS: HALOPERIDOL 5 MG TABLET PO PRN ×2 (13:15→20:13)
[2022-04-01] MEDS: DOCUSATE SODIUM 100 MG CAPSULE PO PRN (13:23)
[2022-04-01 20:00] VITALS: BP 107/63
[2022-04-01] MEDS: TraZODone HCL 50 MG TABLET PO SCH (20:13)
[2022-04-01] MEDS: OLANZapine 10 MG TABLET PO SCH (20:13)
[2022-04-02 08:26] VITALS: BP 101/69
[2022-04-02] MEDS: FLUoxetine HCL 10 MG CAPSULE PO SCH (08:39)
[2022-04-02] MEDS: OLANZapine 5 MG TABLET PO SCH ×2 (08:39→16:17)
[2022-04-02] MEDS: LITHIUM CARBONATE 300 MG CAPSULE PO SCH ×3 (08:39→16:17)
[2022-04-02] MEDS: NICOTINE 14 MG/24 HOUR PATCH TD SCH (08:40)
[2022-04-02] MEDS: LORazepam 2 MG TABLET PO PRN ×2 (09:08→18:29)
[2022-04-02] MEDS: HALOPERIDOL 5 MG TABLET PO PRN (13:11)
[2022-04-02 18:23] VITALS: BP 103/64
[2022-04-02] MEDS: OLANZapine 10 MG TABLET PO SCH (20:57)
[2022-04-02] MEDS: TraZODone HCL 50 MG TABLET PO SCH (20:58)
[2022-04-02 23:02] VITALS: BP 112/70
[2022-04-03] MEDS: LITHIUM CARBONATE 300 MG CAPSULE PO SCH ×3 (08:28→16:56)
[2022-04-03] MEDS: NICOTINE 14 MG/24 HOUR PATCH TD SCH (08:28)
[2022-04-03] MEDS: OLANZapine 5 MG TABLET PO SCH ×2 (08:28→16:56)
[2022-04-03] MEDS: FLUoxetine HCL 10 MG CAPSULE PO SCH (08:28)
[2022-04-03 08:52] VITALS: BP 96/64
[2022-04-03 10:28] VITALS: BP 108/68
[2022-04-03] MEDS: LORazepam 2 MG TABLET PO PRN (10:38)
[2022-04-03] MEDS: NYSTATIN 15 GM POWDER BOTTLE TP SCH ×2 (10:45→16:56)
[2022-04-03] MEDS: HALOPERIDOL 5 MG TABLET PO PRN (16:16)
[2022-04-03] MEDS: DOCUSATE SODIUM 100 MG CAPSULE PO PRN (18:09)
[2022-04-03] MEDS: TraZODone HCL 50 MG TABLET PO SCH (20:26)
[2022-04-03] MEDS: OLANZapine 10 MG TABLET PO SCH (20:27)
[2022-04-03 23:33] VITALS: BP 107/75
[2022-04-04] MEDS: LITHIUM CARBONATE 300 MG CAPSULE PO SCH ×3 (09:01→16:24)
[2022-04-04] MEDS: LORazepam 2 MG TABLET PO PRN (09:01)
[2022-04-04] MEDS: NICOTINE 14 MG/24 HOUR PATCH TD SCH (09:02)
[2022-04-04] MEDS: FLUoxetine HCL 10 MG CAPSULE PO SCH (09:02)
[2022-04-04] MEDS: OLANZapine 5 MG TABLET PO SCH ×2 (09:02→16:24)
[2022-04-04] MEDS: NYSTATIN 15 GM POWDER BOTTLE TP SCH ×2 (09:03→18:15)
[2022-04-04 09:05] VITALS: BP 117/75
[2022-04-04] MEDS ORDERED: MAGNESIUM HYDROXIDE SUSPENSION 30 ML UDCUP PO PRN (10:30)
[2022-04-04] MEDS: BusPIRone HCL 5 MG TABLET PO SCH ×3 (11:12→21:02)
[2022-04-04] MEDS: HALOPERIDOL 5 MG TABLET PO PRN (13:10)
[2022-04-04] MEDS: BISACODYL 5 MG EC TABLET PO SCH (19:14)
[2022-04-04 20:17] VITALS: BP 113/66
[2022-04-04] MEDS: OLANZapine 10 MG TABLET PO SCH (21:02)
[2022-04-04] MEDS: TraZODone HCL 50 MG TABLET PO SCH (21:02)
[2022-04-05 08:38] VITALS: BP 116/76
[2022-04-05] MEDS: NYSTATIN 15 GM POWDER BOTTLE TP SCH ×2 (09:00→16:31)
[2022-04-05] MEDS: LITHIUM CARBONATE 300 MG CAPSULE PO SCH ×3 (09:00→16:31)
[2022-04-05] MEDS: FLUoxetine HCL 10 MG CAPSULE PO SCH (09:00)
[2022-04-05] MEDS: BusPIRone HCL 5 MG TABLET PO SCH ×3 (09:00→20:13)
[2022-04-05] MEDS: NICOTINE 14 MG/24 HOUR PATCH TD SCH (09:00)
[2022-04-05] MEDS: OLANZapine 5 MG TABLET PO SCH ×2 (09:00→16:31)
[2022-04-05] MEDS: BISACODYL 5 MG EC TABLET PO SCH (09:00)
[2022-04-05] MEDS: LORazepam 2 MG TABLET PO PRN (12:17)
[2022-04-05] MEDS: HALOPERIDOL 5 MG TABLET PO PRN (18:37)
[2022-04-05] MEDS: TraZODone HCL 50 MG TABLET PO SCH (20:13)
[2022-04-05] MEDS: OLANZapine 10 MG TABLET PO SCH (20:13)
[2022-04-05 20:29] VITALS: BP 114/64
[2022-04-06] MEDS ORDERED: BUSP5TAB20 PO ×3 (07:34→08:49)
[2022-04-06] MEDS ORDERED: TRAZ-252 PO ×2 (07:36→08:49)
[2022-04-06] MEDS ORDERED: OLAN5TAB52 PO ×2 (07:37→08:49)
[2022-04-06] MEDS ORDERED: OLAN10TA74 PO (07:38)
[2022-04-06] MEDS ORDERED: BISA-151 PO (07:39)
[2022-04-06] MEDS: FLUoxetine HCL 10 MG CAPSULE PO SCH (08:23)
[2022-04-06] MEDS: OLANZapine 5 MG TABLET PO SCH (08:23)
[2022-04-06] MEDS: NYSTATIN 15 GM POWDER BOTTLE TP SCH (08:23)
[2022-04-06] MEDS: LITHIUM CARBONATE 300 MG CAPSULE PO SCH (08:23)
[2022-04-06] MEDS: BusPIRone HCL 5 MG TABLET PO SCH (08:23)
[2022-04-06] MEDS: BISACODYL 5 MG EC TABLET PO SCH (08:24)
[2022-04-06] MEDS: NICOTINE 14 MG/24 HOUR PATCH TD SCH (08:24)
[2022-04-06] MEDS ORDERED: PROZ10 PO (08:49)
[2022-04-06] MEDS ORDERED: LITH300C3 PO (08:49)
[2022-04-06] MEDS ORDERED: OLAN10 PO (08:49)
[2022-04-06 09:50] LABS: GLUCOMETER DEV NAME(LOC) POC.BV
== END 2022-04-06 09:00 | disposition home or self-care (01) | DRG 885 ==
LOC: EMS 13:57 → B2X 17:07
PROVIDERS: ADMIT Psychiatry & Neurology Psychiatry; ATTEND Psychiatry & Neurology Psychiatry
DX: F25.0 Schizoaffective disorder, bipolar type (principal); R45.851 Suicidal ideations; E87.1 Hypo-osmolality and hyponatremia; D72.829 Elevated white blood cell count, unspecified; Z20.822 Contact with and (suspected) exposure to COVID-19; E66.9 Obesity, unspecified; F10.10 Alcohol abuse, uncomplicated; X58.XXXA Exposure to other specified factors, initial encounter; D50.9 Iron deficiency anemia, unspecified; F12.10 Cannabis abuse, uncomplicated; F17.210 Nicotine dependence, cigarettes, uncomplicated; F41.9 Anxiety disorder, unspecified; G47.00 Insomnia, unspecified; S51.819A Laceration without foreign body of unspecified forearm, initial encounter; Z59.00 Homelessness unspecified; Z79.899 Other long term (current) drug therapy; Z68.36 Body mass index [BMI] 36.0-36.9, adult; Z71.51 Drug abuse counseling and surveillance of drug abuser; Z71.6 Tobacco abuse counseling; Y93.89 Activity, other specified; Y92.89 Other specified places as the place of occurrence of the external cause; Y99.8 Other external cause status
CPT/HCPCS: 80053; 80061; 80178; 83036; 84443; 84702; 85025; 99285; G0480